=== PATIENT | male | born 1965 | race Caucasian/White ===

== ENCOUNTER → 2019-04-28 07:42 | Outpatient (BNVA) | payer OTHER, SELFPAY | PROVIDERS: Family Provider Nurse Practitioner Family; PCP Registered Nurse; Referring Provider Registered Nurse; Visit Provider Specialist | DX: G56.03 Carpal tunnel syndrome, bilateral upper limbs (principal); F17.210 Nicotine dependence, cigarettes, uncomplicated | CPT/HCPCS: 95910 ==

== ENCOUNTER → 2019-06-09 11:36 | Outpatient (BNVA) | payer OTHER, SELFPAY | PROVIDERS: Family Provider Nurse Practitioner Family; PCP Registered Nurse; Referring Provider Registered Nurse; Visit Provider Specialist | DX: G56.03 Carpal tunnel syndrome, bilateral upper limbs (principal) | CPT/HCPCS: 73110 ==

== ENCOUNTER → 2019-11-15 12:27 | Outpatient (BNVA) | payer OTHER, SELFPAY | PROVIDERS: Family Provider Nurse Practitioner Family; PCP Registered Nurse; Visit Provider Family Medicine | DX: Z11.59 Encounter for screening for other viral diseases (principal) | CPT/HCPCS: 87635 ==

== ENCOUNTER 2020-01-11 11:41 | Outpatient (CLI) | payer OTHER, SELFPAY ==
--- NOTE | 2020-01-11 12:01 | XR_ITS ---
WS: [id number] XR lumbar spine 2-3V* [id number] REASON FOR EXAM: ACUTE BACK PAIN FINDINGS: Normal lumbar spine alignment. No vertebral body compression deformity or focal vertebral body lesion. Compared to previous examination of 09/09/2010, the intervertebral disc spaces at L4-L5 and L5-S1 has narrowed further with significant loss of disc height at this time. Adjacent endplate sclerosis at joey th levels. Mild to moderate degenerative changes in the facet joints L3-S1. XR/XR lumbar spine 2-3V* [id number] IMPRESSION: Progression of degenerative spondylosis at L4-L5 and L5-S1 as above.
== END 2020-01-11 11:42 | disposition home or self-care (01) ==
PROVIDERS: PCP Registered Nurse; Visit Provider Family Medicine
DX: M47.816 Spondylosis without myelopathy or radiculopathy, lumbar region (principal); M47.817 Spondylosis without myelopathy or radiculopathy, lumbosacral region
CPT/HCPCS: 72100

== ENCOUNTER → 2020-10-01 16:33 | Outpatient (BNVA) | payer OTHER, SELFPAY | PROVIDERS: PCP Registered Nurse; Visit Provider Registered Nurse | DX: R82.90 Unspecified abnormal findings in urine (principal); I73.9 Peripheral vascular disease, unspecified; M54.5 Low back pain; F10.20 Alcohol dependence, uncomplicated; Z71.41 Alcohol abuse counseling and surveillance of alcoholic | CPT/HCPCS: 81000; 85651; 86140 ==

== ENCOUNTER 2020-10-02 10:03 | Outpatient (CLI) | payer OTHER, SELFPAY ==
--- NOTE | 2020-10-02 10:12 | XRR_ITS ---
PROCEDURE INFORMATION: Exam: XR Lumbosacral Spine Exam date and time: 10/02/2020 10:12 AM Age: 55 years old Clinical indication: Other: Lower extremity pain; Patient HX: History--pt stated he is having pain and other issues with bi-lat feet. PT states the physician is looking to rule out a pinched nerve. No back complaints as of today; Additional info: M54.5 - low back pain TECHNIQUE: Imaging protocol: XR of the lumbosacral spine. Views: 2 or 3 views. COMPARISON: CR XR lumbar spine 2-3V* [id number] 01/11/2020 12:08 PM FINDINGS: Bones/joints: Degenerative disc disease with intervertebral disc height loss at L4-L5 and L5-S1. No vertebral body height loss or evidence of acute fracture. Lower lumbar facet arthropathy noted. Normal alignment. Soft tissues: Unremarkable. XR/XR lumbar spine 2-3V* [id number] IMPRESSION: Degenerative changes centered within the lower lumbar spine at L4-L5 and L5-S1 with degenerative disc disease and facet arthropathy at these levels. This is not significantly changed from prior study.
--- NOTE | 2020-10-02 10:15 | USCV_ITS ---
Sergio Oglesby Jr Age: 55 Gender: M : 1965 Exam Date: 10/02/2020 10:12 Ordering Phys: Evelina Delatorre ASSEMBLER INSTALLER GENERAL ASSEMBLER INSTALLER GENERAL Technologist: Uma Valentin [place] [facility] [place]ication: BLE PAIN RIGHT LEFT Brachial 110.00 mmHg Brachial 123.00 mmHg Pressure (mmHg) Waveform Pressure (mmHg) Waveform 135.00 SENIOR QUALITY CONTROL INSPECTOR 134.00 152.00 DPA 144.00 1.24 Ankle/Brachial Index 1.17 112.00 Post-Exercise Ankle Brachial Index Pre-Exercise Toe Pressure 121.00 0.91 Pre-Exercise Toe/Brachial Index 0.98 FINDINGS Normal resting ABIs bilaterally Normal resting TBIs bilateral CONCLUSIONS No evidence of any significant arterial obstruction, based on the above findings. Dr Genesis Shirley MD [facility] (Electronically Signed) Final Date: 04 October 2020 00:35 S
== END 2020-10-02 10:04 | disposition home or self-care (01) ==
PROVIDERS: PCP Registered Nurse; Visit Provider Registered Nurse
DX: M54.5 Low back pain (principal); I73.9 Peripheral vascular disease, unspecified
CPT/HCPCS: 72100; 93922

== ENCOUNTER 2020-10-05 14:27 | Outpatient (CLI) | payer OTHER, SELFPAY ==
--- NOTE | 2020-10-05 15:00 | USCV_ITS ---
Sergio Oglesby Jr Age: 55 Gender: M : 1965 Exam Date: 10/05/2020 14:45 Ordering Phys: Evelina Delatorre CARE MANAGER Technologist: Malathi Mosher Exam Location: [facility] [place] Indication: bilateral leg pain PROCEDURES: The following venous structures were evaluated: common femoral vein, profunda vein, proximal portion of the greater saphenous vein, superficial femoral vein, and the popliteal vein. The venous duplex Doppler examination of both lower extremities was performed in the standard fashion. FINDINGS: Negative for lower extremity DVT. No superficial thrombus noted. CONCLUSIONS No evidence of right lower extremity DVT. No evidence of left lower extremity DVT. Ramu Miranda MD (Electronically Signed) Final Date: 05 October 2020 17:44 S
== END 2020-10-05 14:28 | disposition home or self-care (01) ==
PROVIDERS: PCP Registered Nurse; Visit Provider Registered Nurse
DX: M79.604 Pain in right leg (principal); M79.605 Pain in left leg; M10.9 Gout, unspecified; F10.20 Alcohol dependence, uncomplicated
CPT/HCPCS: 82607; 84550; 86038; 86431; 93970

== ENCOUNTER → 2020-10-19 15:33 | Outpatient (BNVA) | payer OTHER, SELFPAY | PROVIDERS: PCP Registered Nurse; Visit Provider Podiatrist Foot & Ankle Surgery | DX: M79.672 Pain in left foot (principal); M79.671 Pain in right foot | CPT/HCPCS: 73630 ==

== ENCOUNTER → 2020-10-26 08:01 | Outpatient (BNVA) | payer OTHER, SELFPAY | PROVIDERS: PCP Registered Nurse; Visit Provider Nurse Practitioner | DX: G62.9 Polyneuropathy, unspecified (principal) | CPT/HCPCS: 99204 ==

== ENCOUNTER 2020-10-26 09:40 | Outpatient (CLI) | payer OTHER, SELFPAY ==
[2020-10-26 10:23] LABS: Basophils % 0.5 %; Eosinophils # 0.1 10^3/uL (0.0-0.8); Eosinophils % 0.9 %; Hematocrit 42.4 % (42.0-52.0); Hemoglobin 14.6 g/dL (11.7-16.6); Lymphocytes % 35.1 %; Mean Corpuscular HGB Conc 34.4 g/dL (30.0-36.0); Mean Corpuscular Hemoglobin 30.4 pg (28.0-34.0); Mean Corpuscular Volume 88.1 fl (80-94); Mean Platelet Volume 9.1 fL (7.4-10.4); Monocytes # 0.7 10^3/uL (0.2-0.9); Monocytes % 8.1 %; Neutrophils # 4.65 10^3/uL (1.8-7.7); Neutrophils % 55.2 %; Nucleated Red Blood Cells % 0 %; Platelet Count 262 10^3/cmm (130-400); Red Blood Count 4.81 10^6/uL (4.1-5.3); White Blood Count 8.4 10^3/uL (4.0-10.0)
[2020-10-26 11:05] LABS: Hepatitis A Antibody IgM Non-Reactive (Nonreactive); Hepatitis B Core IgM Non-Reactive (Nonreactive); Hepatitis B Surface Antigen Non-Reactive (Nonreactive); Hepatitis C Virus Antibody Non-Reactive (Nonreactive)
[2020-10-26 11:09] LABS: HIV 1 & 2 Antibody Non-Reactive (Non-Reactiv); HIV 1 & 2 Antigen Non-Reactive (Non-Reactiv)
[2020-10-26 11:10] LABS: Alanine Aminotransferase 38 U/L (0-41); Albumin Level 4.5 g/dL (3.5-5.2); Alkaline Phosphatase 65 IU/L (40-130); Anion Gap 12.7 (5-19); Aspartate Amino Transferase 18 U/L (0-40); Blood Urea Nitrogen 12 mg/dL (6-20); C Reactive Protein 0.7 mg/L (0.0-4.9); Calcium 8.8 mg/dL (8.5-10.5); Carbon Dioxide 28 mmol/L (22-29); Chloride 98 mmol/L (98-107); Globulin 2.9 g/dL (1.3-4.6); Glucose 81 mg/dL (65-115); Osmolality Calculated 277 mOsm/kg (285-295); Potassium 4.7 mmol/L (3.5-5.1); Sodium 134 mmol/L (136-145); Total Bilirubin 0.4 mg/dL (0.15-1.2); Total Protein 7.4 g/dL (6.6-8.7); Vitamin B12 450 pg/mL (232-1245)
[2020-10-26 11:12] LABS: Folate Level 16.5 ng/mL (4.5-32.2)
[2020-10-26 12:10] LABS: Erythrocyte Sedimentation Rate 18 mm/hr (0-10)
[2020-10-29 12:05] LABS: Lymes IGG WB <0.90 index
[2020-10-30 09:02] LABS: Methylmalonic Acid 91 nmol/L (87-318)
== END 2020-10-26 09:41 | disposition home or self-care (01) ==
LOC: LAB 09:50
PROVIDERS: PCP Registered Nurse; Visit Provider Nurse Practitioner
DX: G62.9 Polyneuropathy, unspecified (principal)
CPT/HCPCS: 80053; 80074; 82607; 82746; 83921; 84260; 84443; 85025; 85651; 86140; 86617; 87806

== ENCOUNTER → 2020-11-21 15:55 | Outpatient (BNVA) | payer OTHER, SELFPAY | PROVIDERS: PCP Registered Nurse; Referring Provider Nurse Practitioner; Visit Provider Specialist | DX: E11.42 Type 2 diabetes mellitus with diabetic polyneuropathy (principal) | CPT/HCPCS: 95909 ==

== ENCOUNTER → 2020-12-12 12:57 | Outpatient (BNVA) | payer OTHER, SELFPAY | PROVIDERS: PCP Registered Nurse; Visit Provider Nurse Practitioner | DX: G62.9 Polyneuropathy, unspecified (principal) | CPT/HCPCS: 99213; 99214 ==

== ENCOUNTER 2020-12-13 09:51 | Outpatient (CLI) | payer OTHER, SELFPAY ==
[2020-12-13 11:35] LABS: Vitamin B12 391 pg/mL (232-1245)
[2020-12-18 00:28] LABS: Vitamin B1(Thiamin) Plas/Ser 22 nmol/L (8-30)
[2020-12-18 15:42] LABS: Alpha-Tocopherol 23.4 mg/L; Beta-Gamma-Tocopherol 1.2 mg/L (<4.4)
[2020-12-18 22:18] LABS: Vitamin B6 Plasma 17.5 ng/mL (2.1-21.7)
[2020-12-20 19:03] LABS: Copper Level 126 mcg/dL (70-175)
== END 2020-12-13 09:52 | disposition home or self-care (01) ==
LOC: LAB 09:55
PROVIDERS: PCP Registered Nurse; Visit Provider Nurse Practitioner
DX: G62.9 Polyneuropathy, unspecified (principal)
CPT/HCPCS: 82525; 82607; 84207; 84425; 84446

== ENCOUNTER 2020-12-15 07:22 | Outpatient (CLI) | payer OTHER, SELFPAY ==
[2020-12-24 07:54] LABS: Arsenic, 24 Hour Urine <10 mcg/L (< OR = 80); Lead, 24 Hour Urine <10 mcg/L (< 80); Mercury, 24 Hour Urine <4 mcg/L
== END 2020-12-15 07:23 | disposition home or self-care (01) ==
LOC: LAB 07:23
PROVIDERS: PCP Registered Nurse; Visit Provider Nurse Practitioner
DX: G62.9 Polyneuropathy, unspecified (principal)
CPT/HCPCS: 82175; 83655; 83825

== ENCOUNTER → 2020-12-31 10:00 | Outpatient (BNVA) | payer OTHER, SELFPAY | PROVIDERS: PCP Registered Nurse; Visit Provider Nurse Practitioner | DX: G62.9 Polyneuropathy, unspecified (principal) | CPT/HCPCS: 99214 ==

== ENCOUNTER → 2024-01-20 13:10 | Outpatient (BNVA) | payer OTHER, SELFPAY | PROVIDERS: PCP Registered Nurse; Referring Provider Family Medicine; Visit Provider Surgery | DX: Z12.11 Encounter for screening for malignant neoplasm of colon (principal) | CPT/HCPCS: 99204 ==

== ENCOUNTER 2024-02-04 06:24 | Day surgery (SDC) | payer OTHER, SELFPAY ==
--- NOTE | 2024-02-04 05:29 | P.HPUD_ITS ---
Surgery/Procedure H&P Update DATE OF PROCEDURE: February 04, 2024 DATE H&P PERFORMED: 01/20/24 H&P UPDATE INFORMATION: I have reviewed H&P completed within last 30 days, I have examined patient prior to procedure, No changes to prior documentation and H&P is in [facility] [place] [place] on date indicated PLANNED PROCEDURE: Operation Date: 02/04/24 07:40 Proposed Procedures p Colonoscopy - 91407, G0121, Z12.11(Not Applicable) - Zachary Lord MD
--- NOTE | 2024-02-04 05:29 | W.PM.OPSUD ---
Surgery/Procedure H&P Update DATE OF PROCEDURE: February 04, 2024 DATE H&P PERFORMED: 01/20/24 H&P UPDATE INFORMATION: I have reviewed H&P completed within last 30 days, I have examined patient prior to procedure, No changes to prior documentation and H&P is in [facility] [place] EMR on date indicated PLANNED PROCEDURE: Operation Date: 02/04/24 07:40 Proposed Procedures p Colonoscopy - 74549, G0121, Z12.11(Not Applicable) - Zachary Lord MD
[2024-02-04 06:36] VITALS: BP 117/66; PULSE 73; RESP 18; TEMP 36.2; O2SAT 97; BMI 33.9
[2024-02-04] MEDS: sodium chloride 0.9% 500 ML 15 ML IV (06:44)
--- NOTE | 2024-02-04 07:19 | P.ANESASSM_ITS ---
Pre-Anesthetic Assessment Height/Weight: Height 1.83 m Weight 113.398 kg Temp Pulse Resp BP Pulse Ox O2 Del Method 97.2 F L 73 18 117/66 97 Room Air 02/04/24 06:36 02/04/24 06:36 02/04/24 06:36 02/04/24 06:36 02/04/24 06:36 02/04/24 06:36 Preop Diagnosis: screening Operation Date: 02/04/24 07:40 Proposed Procedures p Colonoscopy - 04123, G0121, Z12.11(Not Applicable) - Zachary Lord MD Familial anesthetic complications: none Was Beta Gisell taken within 24 hours: N/A Was Clonidine taken within 24 hours: N/A Last intake: Intake Last Liquid Date 02/03/24 Last Liquid Time 20:00 Last Solid Date 02/02/24 Last Solid Time 18:00 Social Alcohol (hx alcohol abuse ) Exam alert, oriented x 3 and clear to auscultation bilaterally Airway Mallampati: Class II Dentition: full History/ROS No significant history except as noted Pulmonary None reported CV/HEM Hypertension None reported Hepatic None reported GI None reported Metabolic None reported Musc/skel None reported Neuropsych None reported Anesthetic Plan ASA status: 2 Anesthesia: Anesthesia Evaluation and MAC Risk of > 500 ml blood loss (7ml/kg in children): No Medications/Allergies Home Medications Medication Instructions Recorded Confirmed Last Taken Type allopurinol 100 mg tablet 100 mg PO DAILY 02/02/24 02/02/24 02/03/24 History lisinopril 20 mg tablet 20 mg PO DAILY 02/02/24 02/02/24 02/03/24 History pregabalin 300 mg capsule 300 mg PO DAILY 02/02/24 02/02/24 02/03/24 History venlafaxine 75 mg capsule,extended 75 mg PO DAILY 02/02/24 02/02/24 02/03/24 History release 24 hr Allergies Allergy/AdvReac Type Severity Reaction Status Date / Time No Known Allergies Allergy Verified 01/20/24 13:16 Current Medications Generic Name Dose Route Start Last Admin Trade Name Freq PRN Reason Stop Dose Admin Sodium Chloride 500 mls @ 15 mls/hr 02/04/24 06:31 02/04/24 06:44 Sodium Chloride 0.9% IV 02/05/24 06:30 15 mls/hr .Q24H PRN Administration COLONOSCOPY FLUIDS PFSH Anesthesia Medical History Actinic keratosis Vitamin D deficiency, unspecified Lyme disease Gout, unspecified History of sleep apnea Nicotine dependence, unspecified, uncomplicated Essential (primary) hypertension Surgical History History of knee surgery Family History Other Cancer Heart disease Social History Smoking and tobacco/nicotine status: never used tobacco/nicotine Alcohol intake: never Substance/Drug Use: never Adopted: No Lives independently: No Household members: spouse Marital status: Current occupational status: employed Current occupation: [employer] Sexually active: Yes Do you think of yourself as: Straight/Heterosexual Current gender identity: Male Data Anesthesia Cardiac Studies: No Data to Display
[2024-02-04 07:53] VITALS: BP 105/63; PULSE 69; RESP 15; TEMP 36.4; O2SAT 97
[2024-02-04 07:58] VITALS: BP 97/64; PULSE 69; RESP 18; O2SAT 97
[2024-02-04 08:08] VITALS: BP 125/69; PULSE 64; RESP 18; O2SAT 98
--- NOTE | 2024-02-04 08:22 | ANE.PACU2 ---
Inpatient post-anesthesia follow up: Airway intact: Yes Vital signs: Temperature 97.6 F Pulse Rate 64 Respiratory Rate 18 Blood Pressure 125/69 Pulse Oximetry 98 Oxygen Delivery Me thod Room Air Oxygen Flow Rate Fraction of Inspir ed Oxygen Hydration adequate: Yes Nausea and vomiting: No Pain level: 1 Mental status: Baseline
== END 2024-02-04 08:38 | disposition home or self-care (01) ==
PROVIDERS: PCP Family Medicine; Visit Provider Surgery
PROC: 0DJD8ZZ Inspection of Lower Intestinal Tract, Via Natural or Artificial Opening Endoscopic (ICD-10-PCS; CPT 45378; principal; 2024-02-04 07:40)
DX: Z12.11 Encounter for screening for malignant neoplasm of colon (principal); I10 Essential (primary) hypertension; G47.30 Sleep apnea, unspecified; F17.200 Nicotine dependence, unspecified, uncomplicated
CPT/HCPCS: 45378; J2704; J7040

== ENCOUNTER 2024-03-07 20:00 | Outpatient (CLI) | payer OTHER, SELFPAY | END 2024-03-07 20:01 | disposition home or self-care (01) | LOC: SLEEP 23:47 | PROVIDERS: PCP Family Medicine; Visit Provider Family Medicine | DX: G47.33 Obstructive sleep apnea (adult) (pediatric) (principal) | CPT/HCPCS: 95810 ==

== ENCOUNTER 2024-06-27 20:00 | Outpatient (CLI) | payer OTHER, SELFPAY | END 2024-06-27 20:01 | disposition home or self-care (01) | LOC: SLEEP 06-28 00:32 | PROVIDERS: PCP Family Medicine; Visit Provider Family Medicine | DX: G47.33 Obstructive sleep apnea (adult) (pediatric) (principal) | CPT/HCPCS: 95811 ==

== ENCOUNTER → 2024-12-26 14:46 | Outpatient (BNVA) | payer OTHER, SELFPAY | PROVIDERS: PCP Family Medicine; Visit Provider Nurse Practitioner Family | DX: L82.1 Other seborrheic keratosis (principal); L81.4 Other melanin hyperpigmentation; D22.5 Melanocytic nevi of trunk; L57.8 Other skin changes due to chronic exposure to nonionizing radiation; D48.5 Neoplasm of uncertain behavior of skin; L57.0 Actinic keratosis | CPT/HCPCS: 17000; 69100; 99213 ==